=== PATIENT | female | born 1965 | race Caucasian/White ===

== ENCOUNTER 2021-01-07 09:34 | Emergency (ER) | payer OTHER, BC ==
[~2021-01-07] VITALS: Ht 170.2 cm; Wt 113.6 kg
[2021-01-07] MEDS ORDERED: ACETAMINOPHEN 500 MG TAB PO ONE (10:15)
[2021-01-07] MEDS ORDERED: LIDOCAINE 5% (LIDODERM) PATCH TD ONE (10:15)
[2021-01-07] MEDS ORDERED: methylPREDNISolone 125MG 2ML VIAL IV ONE (10:15)
[2021-01-07] MEDS ORDERED: KETOROLAC 30 MG/ML 1ML VIAL IV ONE (11:30)
[2021-01-07] MEDS ORDERED: CYCLOBENZAPRINE 10MG TABLET PO ONE (12:15)
[2021-01-07] MEDS ORDERED: LIDO5DIS41 TOP (13:55)
[2021-01-07] MEDS ORDERED: CYCL5TAB PO (13:55)
[2021-01-07 14:00] VITALS: BP 138/69
[2021-01-07] MEDS ORDERED: **NOTE PATIENT COMMENT** MISC XX SCH (21:00)
== END 2021-01-07 14:18 | disposition home or self-care (01) ==
LOC: M ED 09:34
DX: M62.830 Muscle spasm of back (principal); M54.5 Low back pain; G89.29 Other chronic pain
CPT/HCPCS: 80047; 96374; 96375; 99284; J1885; J2930

== ENCOUNTER → 2021-03-04 | Outpatient (CLI) | payer OTHER ==
[~2021-03-04] MED LIST: CYCL5TAB PO; LIDO5DIS41 TOP
== END ==
LOC: M PLARAD 09:32
PROVIDERS: ATTEND Physician Assistant
DX: M54.16 Radiculopathy, lumbar region (principal)

== ENCOUNTER 2021-12-02 14:52 | Emergency (ER) | payer BC, OTHER ==
[~2021-12-02] VITALS: Ht 170.2 cm; Wt 113.6 kg
[2021-12-02 15:11] VITALS: O2SAT 95
[2021-12-02] MEDS ORDERED: ACET500P3 PO (15:11)
[2021-12-02] MEDS ORDERED: [UNRECOGNIZED DRUG - CODE] PO (15:11)
[2021-12-02] MEDS ORDERED: IBUP200T46 PO (15:11)
[2021-12-02] MEDS ORDERED: PSEUDOEPHEDRINE 30 MG TAB PO ONE (15:40)
[2021-12-02] MEDS ORDERED: KETOROLAC 30 MG/ML 1ML VIAL IM ONE (15:40)
[2021-12-02] MEDS ORDERED: KETOROLAC TROMETHAMINE 10 MG TAB PO ONE (15:40)
[2021-12-02] MEDS ORDERED: METOCLOPRAMIDE 10 MG TAB PO ONE (15:40)
[2021-12-02] MEDS ORDERED: PSEU120T19 PO (17:20)
[2021-12-02 17:39] VITALS: BP 135/68
== END 2021-12-02 17:41 | disposition home or self-care (01) ==
LOC: M ED 14:52
DX: U07.1 COVID-19 (principal); G44.209 Tension-type headache, unspecified, not intractable

== ENCOUNTER 2021-12-05 18:19 | Emergency (ER) | payer BC ==
[~2021-12-05] VITALS: Ht 170.2 cm; Wt 112.9 kg
[~2021-12-05 18:19] MED LIST changes: +ACET500P3 PO; +IBUP200T46 PO; +PSEU120T19 PO; +[UNRECOGNIZED DRUG - CODE] PO
[2021-12-05 18:21] VITALS: BP 123/83
== END 2021-12-06 02:26 | disposition left against medical advice (07) ==
LOC: M ED 18:19
DX: Z53.21 Procedure and treatment not carried out due to patient leaving prior to being seen by health care provider (principal)

== ENCOUNTER → 2021-12-16 | Outpatient (CLI) | payer BC ==
[~2021-12-16] MED LIST changes: +ISOVUE-370 76% 100ML VIAL As Ordered ONE
== END ==
LOC: M RAD 10:08
PROVIDERS: ATTEND Nurse Practitioner
DX: Z09 Encounter for follow-up examination after completed treatment for conditions other than malignant neoplasm (principal); Z86.16 Personal history of COVID-19
CPT/HCPCS: 71275; Q9967

== ENCOUNTER → 2022-04-12 | Outpatient (CLI) | payer BC ==
[~2022-04-12] MED LIST changes: -ISOVUE-370 76% 100ML VIAL As Ordered ONE
== END ==
LOC: M RAD 10:42
PROVIDERS: ATTEND Nurse Practitioner
DX: U07.1 COVID-19 (principal)

== ENCOUNTER → 2023-05-01 | Outpatient (CLI) | payer BC | LOC: M WHC 08:21 | PROVIDERS: ATTEND Physician Assistant Medical | DX: Z12.31 Encounter for screening mammogram for malignant neoplasm of breast (principal) ==

== ENCOUNTER → 2023-05-01 | Outpatient (CLI) | payer BC ==
[2023-05-01 10:51] LABS: BASO # 0.1 10^3/uL (0.0-0.2); BASO % 0.8 % (0.0-1.0); EOS # 0.1 10^3/uL (0.0-0.5); EOS % 0.9 % (0.0-3.0); HEMATOCRIT 45.2 % (36.0-47.0); HEMOGLOBIN 14.6 g/dl (12.0-15.5); LYMPH # 2.7 10^3/uL (1.5-5.0); LYMPH % 34.7 % (24.0-44.0); MEAN CORPUSCULAR HEMOGLOBIN 29.9 pg (27.0-33.0); MEAN CORPUSCULAR HGB CONC 32.3 g/dl (32.0-36.5); MEAN CORPUSCULAR VOLUME 92.4 fl (80.0-96.0); MONO # 0.8 10^3/uL (0.0-0.8); MONO % 10.2 % (2.0-8.0); NEUTROPHILS # 4.1 10^3/uL (1.5-8.5); NEUTROPHILS % 52.9 % (36.0-66.0); PLATELET COUNT, AUTOMATED 273 10^3/uL (150-450); RED BLOOD COUNT 4.89 10^6/uL (4.00-5.40); WHITE BLOOD COUNT 7.8 10^3/uL (4.0-10.0)
[2023-05-01 11:12] LABS: HEMOGLOBIN A1c 5.6 % (4.0-6.0)
[2023-05-01 11:18] LABS: ALBUMIN 3.9 G/DL (3.2-5.2); ALKALINE PHOSPHATASE 113 U/L (46-116); ALT/SGPT 19 U/L (7.0-40); AST/SGOT 19 U/L (<34); BILIRUBIN,TOTAL 0.9 MG/DL (0.3-1.2); BLOOD UREA NITROGEN 14 MG/DL (9-23); CARBON DIOXIDE LEVEL 27 MMOL/L (20-31); CHLORIDE LEVEL 109 MMOL/L (98-107); CHOLESTEROL LEVEL 237 MG/DL (<200); CREATININE FOR GFR 0.84 MG/DL (0.55-1.30); GLOMERULAR FILTRATION RATE > 60.0 (>51); GLUCOSE, FASTING 101 MG/DL (60-100); HDL CHOLESTEROL 38.2 MG/DL (>40); LDL CHOLESTEROL 165.4 MG/DL (<100); NON-HDL-C 198.8 MG/DL; POTASSIUM SERUM 4.6 MMOL/L (3.5-5.1); SODIUM LEVEL 142 MMOL/L (136-145); TOTAL PROTEIN 6.3 G/DL (5.7-8.2); TRIGLYCERIDES LEVEL 167 MG/DL (<150)
[2023-05-01 11:21] LABS: THYROID STIMULATING HORMONE 1.092 uIU/ML (0.55-4.78); TOTAL 25(OH) VITAMIN D 17.4 NG/ML (20.0-100.0)
== END ==
LOC: M PLALAB 07:54
PROVIDERS: ATTEND Physician Assistant Medical
DX: E55.9 Vitamin D deficiency, unspecified (principal)

== ENCOUNTER → 2025-02-17 | Outpatient (CLI) | payer BC ==
[~2025-02-17] MED LIST changes: -CYCL5TAB PO; +CYCL5TAB4 PO
== END ==
LOC: M WHC 06:45
PROVIDERS: ATTEND Physician Assistant Medical
DX: Z12.31 Encounter for screening mammogram for malignant neoplasm of breast (principal)